=== PATIENT | female | born 1985 | race Caucasian/White ===

== ENCOUNTER 2019-03-18 13:33 | Emergency (ER) | payer OTHER ==
[~2019-03-18] VITALS: Ht 157.5 cm; Wt 61.2 kg
[2019-03-18 14:13] LABS: URINE BILIRUBIN NEGATIVE (Negative); URINE BLOOD TRACE (Negative); URINE CLARITY CLEAR; URINE COLOR YELLOW; URINE GLUCOSE-RANDOM* NEGATIVE (Negative); URINE KETONES TRACE (Negative); URINE LEUKOCYTES-REFLEX NEGATIVE (Negative); URINE NITRITE-REFLEX NEGATIVE (Negative); URINE PROTEIN (DIPSTICK) NEGATIVE (Negative); URINE SPECIFIC GRAVITY >= 1.030 (1.005-1.035); URINE UROBILINOGEN 0.2 E.U./dl (0.2-1.0)
[2019-03-18 14:36] LABS: ABSOLUTE NEUTROPHILS 5.7 thou/uL (1.4-8.2); BASOPHILS 1.3 % (0.0-2.0); EOSINOPHILS 2.8 % (0.0-3.0); HEMATOCRIT 42.5 % (37.0-47.0); HEMOGLOBIN 14.4 gm/dL (12.0-15.0); LYMPHOCYTES 21.5 % (24.0-44.0); MCV 88.3 fL (80.0-100.0); PLATELET COUNT 250 thou/uL (150-400); POLYS 68.4 % (36.0-66.0); RBC 4.81 mil/uL (4.20-5.00); RDW 14.4 % (10.5-14.5); WBC 8.3 thou/uL (4.0-11.0)
[2019-03-18 14:39] LABS: CREATININE 0.8 mg/dL (0.6-1.0); POTASSIUM 3.4 mmol/L (3.5-5.1)
[2019-03-18 14:45] LABS: ALBUMIN 4.3 g/dL (3.4-5.0); TOTAL BILIRUBIN 0.7 mg/dL (<0.1-1.0); TOTAL PROTEIN 7.8 g/dL (6.4-8.2)
[2019-03-18] MEDS ORDERED: PRILOSEC OTC20 MG PO (15:21)
[2019-03-18 15:49] VITALS: BP 133/71
== END 2019-03-18 15:50 | disposition home or self-care (01) ==
LOC: ER 13:33
PROVIDERS: Physician Assistant
DX: R10.13 Epigastric pain (principal)